=== PATIENT | male | born 1960 | race Caucasian/White ===

== ENCOUNTER 2017-04-25 11:41 | Emergency (ER) | payer BC, OTHER ==
[~2017-04-25] VITALS: Ht 180.3 cm; Wt 77.0 kg
[2017-04-25 11:55] VITALS: BP 162/77; PULSE 56; RESP 17; TEMP 98.9; O2SAT 97
[2017-04-25 12:27] LABS: BILIRUBIN, URINE NEG (NEG); BLOOD, URINE NEG (NEG); GLUCOSE,URINE NEG (NEG); KETONE, URINE NEG (NEG); NITRITE,URINE NEG (NEG); PH, URINE 5.5 (5.0-8.5); URINE COLOR YELLOW (YELLW/STRAW); URINE LEUKOCYTE ESTERASE NEG (NEG)
[2017-04-25 12:39] LABS: AMORPHOUS SEDIMENT, URINE FEW; SQUAMOUS EPITHELIAL CELL URINE 0-5 /hpf (0-5)
[2017-04-25] MEDS ORDERED: ATEN50TA PO (12:56)
[2017-04-25] MEDS ORDERED: ASPI81CH6 CHEW (12:56)
[2017-04-25] MEDS ORDERED: PANT40TA3 PO (12:56)
[2017-04-25] MEDS ORDERED: AMLO10TA2 PO (12:56)
[2017-04-25] MEDS ORDERED: LISI10TA3 PO (12:56)
[2017-04-25] MEDS ORDERED: HYDR-2376 PO (12:56)
[2017-04-25] MEDS ORDERED: TRAM50 PO (13:28)
[2017-04-25] MEDS ORDERED: CLIN150C14 PO (13:28)
[2017-04-25] MEDS ORDERED: BACT800T5 PO (13:28)
--- NOTE | 2017-04-25 13:28 | PD ---
HPI Chief Complaint: Complaint Time Seen by Provider: 13:00 Travel History International Travel<30 days: No Contact w/Intl Traveler<30days: No Traveled to known affect area: No History of Present Illness HPI 57-year-old male complains of pain and swelling and discharge from the left side of the scrotum. Patient states that he has pain and swelling on left scrotum about 2 months ago. Patient was seen by personal physician and urologist. Patient was put on antibiotic. Last antibiotic was Levaquin. Patient states that he has increasing pain and swelling and discharge when the scrotum for the past 3 days. Patient denies any fever chills. Patient denies any dysuria or frequency. PFSH Past Medical History GERD: Yes Hypertension: Yes Tetanus Vaccination: > 5 Years Influenza Vaccination: No Past Surgical History Surgical History: No Previous Surgery Social History Alcohol Use: Yes (6-8 beers/day) Tobacco Use: Yes (2 PPD) Substance Use: No Allergies-Medications (Allergen,Severity, Reaction): Coded Allergies: No Known Allergies (Unverified , 04/25/17) Reported Meds & Prescriptions Reported Meds & Active Scripts Active Reported Aspirin Low Dose (Aspirin) 81 Mg Chew 81 Mg CHEW DAILY Hydrocodone-Acetaminophen 7.5-300 Mg Tab 1 Tab PO TID Pantoprazole (Pantoprazole Sodium) 40 Mg Tab 40 Mg PO DAILY Atenolol 50 Mg Tab 50 Mg PO DAILY Amlodipine (Amlodipine Besylate) 10 Mg Tab 10 Mg PO DAILY Lisinopril 10 Mg Tab 10 Mg PO DAILY Review of Systems General / Constitutional: No: Fever Eyes: No: Visual changes HENT: No: Headaches Cardiovascular: No: Chest Pain or Discomfort Respiratory: No: Shortness of Breath Gastrointestinal: No: Abdominal Pain Genitourinary: No: Dysuria Musculoskeletal: No: Pain Skin: No Rash Neurologic: No: Weakness Psychiatric: No: Depression Endocrine: No: Polydipsia Hematologic/Lymphatic: No: Easy Bruising Physical Exam Narrative GENERAL: Well-nourished, well-developed patient. SKIN: Focused skin assessment warm/dry. HEAD: Normocephalic. EYES: No scleral icterus. No injection or drainage. NECK: Supple, trachea midline. No JVD or lymphadenopathy. CARDIOVASCULAR: Regular rate and rhythm without murmurs, gallops, or rubs. RESPIRATORY: Breath sounds equal bilaterally. No accessory muscle use. GASTROINTESTINAL: Abdomen soft, non-tender, nondistended. MUSCULOSKELETAL: No cyanosis, or edema. BACK: Nontender without obvious deformity. No CVA tenderness. exam: Patient has redness and swelling and induration with an open lesion on the left scrotum. Mild/moderate tenderness on palpation. No urethral discharge or bleeding noted. Data Data Last Documented VS Vital Signs Date Time Temp Pulse Resp B/P (MAP) Pulse Ox O2 Delivery O2 Flow Rate FiO2 04/25/17 11:55 98.9 56 17 162/77 (105) 97 Orders Orders Urinalysis - C+S If Indicated (04/25/17 12:12) Clindamycin Inj (Cleocin Inj) (04/25/17 13:30) Acetamin-Hydrocod 325-5 Mg ([place] 5-325 (04/25/17 13:30) Wound Culture And Gram Stain (04/25/17 13:19) Labs Laboratory Tests Test 04/25/17 12:20 Urine Collection Type CLEAN CATCH Urine Color YELLOW Urine Turbidity CLEAR Urine pH 5.5 Urine Specific [place] LESS/EQUAL 1.005 Urine Protein NEG mg/dL Urine Glucose (UA) NEG mg/dL Urine Ketones NEG mg/dL Urine Occult Blood NEG Urine Nitrite NEG Urine Bilirubin NEG Urine Urobilinogen 0.2 MG/DL Urine Leukocyte Esterase NEG Urine Squamous Epithelial Cells 0-5 /hpf Urine Amorphous Sediment FEW Microscopic Urinalysis Comment CULT NOT INDICATED Urine Collection Time 1220 MDM Medical Decision Making Medical Screen Exam Complete: Yes Emergency Medical Condition: Yes Interpretation(s) UA is negative. Differential Diagnosis Differential diagnosis including cellulitis, abscess. Narrative Course 57-year-old male with redness swelling discharge left scrotum. Patient has been seen by urologist and treated for UTI. Clindamycin 600 mg IM. Procedures Procedure Narrative The left scrotum was debrided. Packing applied. Dressing applied. Diagnosis Primary Impression: Scrotum, abscess Patient Instructions: General Instructions Additional Instructions: Take medications as directed. Wound care daily. Follow-up with urologist. Med/Other Pt SpecificInfo: Prescription(s) given Scripts Tramadol (Ultram) 50 Mg Tab 50 MG PO Q6H Y for PAIN, #12 TAB 0 Refills Prov: Suleman Lomax MD 3/16/18 Clindamycin (Clindamycin) 150 Mg Cap 300 MG PO QID for Infection, #80 CAP 0 Refills Prov: Suleman Lomax MD 04/25/17 Sulfamethoxazole-Trimethoprim (Bactrim DS) 800-160 Mg Tab 1 TAB PO BID for Infection, #20 TAB 0 Refills Prov: Suleman Lomax MD 04/25/17 Disposition: 01 DISCHARGE HOME Condition: Stable Suleman Lomax MD Apr 25, 2017 13:28
[2017-04-25] MEDS ORDERED: CLINDAMYCIN PHOS 600 MG/4 ML VIAL IM ONE (13:30)
[2017-04-25] MEDS ORDERED: ACETAMINOPHEN/HYDROcodone 325 MG/5 MG TAB PO ONE (13:30)
[2017-04-25 13:35] VITALS: BP 162/88; PULSE 56; RESP 18; O2SAT 92
== END 2017-04-25 14:05 | disposition home or self-care (01) ==
LOC: PHED 11:41
DX: N49.2 Inflammatory disorders of scrotum (principal); I10 Essential (primary) hypertension; K21.9 Gastro-esophageal reflux disease without esophagitis; F17.200 Nicotine dependence, unspecified, uncomplicated
CPT/HCPCS: 81001; 86403; 87070; 87077; 87205; 96372